=== PATIENT | female | born 1985 | race African-American/Black ===

== ENCOUNTER 2025-06-14 12:17 | Emergency (ER) | payer MEDICAID, OTHER ==
[~2025-06-14] VITALS: Ht 170.2 cm; Wt 95.0 kg
[2025-06-14 12:40] VITALS: O2SAT 100
[2025-06-14] MEDS ORDERED: IBUP-1455 MT (14:00)
[2025-06-14] MEDS: KETOROLAC 30MG/ML VIAL IM ONE (14:20)
[2025-06-14] MEDS: ACETAMINOPHEN 325MG TABLET PO ONE (14:20)
[2025-06-14 14:21] VITALS: BP 140/86; PULSE 105; RESP 16; TEMP 37.1; O2SAT 100
== END 2025-06-14 14:28 | disposition home or self-care (01) ==
LOC: ER 12:17
DX: M25.461 Effusion, right knee (principal)
CPT/HCPCS: 99283; 29505; 73560; 96372; J1885